=== PATIENT | male | born 1975 | race African-American/Black ===

== ENCOUNTER 2021-08-09 07:17 | Emergency (ER) | payer OTHER, SELFPAY ==
[2021-08-09 07:27] VITALS: BP 135/92; PULSE 67; RESP 18; TEMP 36.4; O2SAT 99; BMI 29.4
--- NOTE | 2021-08-09 07:33 | ED_ITS ---
HPI - Medical Clearance General Chief complaint: Medical Clearance Stated complaint: COVID TEST/EXPOSED/ACTIVE DUTY Time Seen by Provider: 08/09/21 07:29 Source: patient Mode of arrival: Ambulatory History of Present Illness HPI Narrative: Patient here for COVID testing only. He was exposed by his roommates. They tested positive last week. Patient denies denies any symptoms. No cough cold congestion fevers chills bodyaches dyspnea. 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 Patient is COVID vaccinated Related Information Allergies Allergy/AdvReac Type Severity Reaction Status Date / Time No Known Drug Allergies Allergy Verified 08/09/21 07:27 Review of Systems Review of Systems Narrative: GENERAL: Denies chills, fatigue, malaise, fever, sweats. HEENT: Denies sinus pain, ear pain, sore throat RESPIRATORY: Denies dyspnea, cough CARDIOVASCULAR: Denies chest pain, palpitations GASTROINTESTINAL: Denies nausea, vomiting, abdominal pain : Denies dysuria, frequency, hematuria MUSCULOSKELETAL: denies muscle or bony pain SKIN: Denies rash, skin lesions NEUROLOGIC: Denies weakness, numbness ROS Unobtainable: All systems reviewed & are unremarkable except as noted in HPI and below Patient History Social History Smoking Status: Never smoker Smoking Status: Never smoker alcohol intake frequency: holidays/special occasions only Substance Use Type: does not use Exam Narrative Exam Narrative: GENERAL: in no distress, not toxic not dyspneic HEAD: Normocephalic. EYES: Pupils equal round No scleral icterus. NECK: Trachea midline. CARDIOVASCULAR: Regular rate and rhythm without murmurs RESPIRATORY: Clear to auscultation. Breath sounds equal bilaterally. No wheezes, rales, or rhonchi. GASTROINTESTINAL: Abdomen soft, non-tender BACK: No flank tenderness. NEURO: AOx4. SKIN: Warm and dry PSYCH: Not anxious, is cooperative Initial Vital Signs Initial Vital Signs: Vital Signs Temperature 97.5 F L 08/09/21 07:27 Pulse Rate 67 08/09/21 07:27 Respiratory Rate 18 08/09/21 07:27 Blood Pressure 135/92 H 08/09/21 07:27 Pulse Oximetry 99 08/09/21 07:27 [facility] - Medical Clearance Differential Diagnosis Differential diagnosis: Likely other (Medical screening/COVID testing) Lab Data Labs: Lab Results 08/09/21 Range/Units 08:14 SARS-CoV-2 (PCR) Negative (Negative) MDM Narrative Medical decision making narrative: Appropriate for discharge home. Patient here for COVID testing for work requirement. Return precautions reviewed with him. Not toxic. Examined vital signs reassuring. Discharge Plan Departure Patient Disposition: Home Clinical Impression: COVID-19 ruled out by laboratory testing Instructions: COVID-19: Protecting Yourself When You're at High Risk, Can COVID-19 be prevented? Activity Restrictions/Additional Instructions: You have tested negative for COVID. You may return to work. Return if worsening questions or concerns. Stand Alone Forms: Work Release Note
[2021-08-09 08:34] LABS: COVID19 -Nasal RAPID Negative (Negative)
== END 2021-08-09 08:45 | disposition home or self-care (01) ==
PROVIDERS: Emergency Provider Emergency Medicine
DX: Z20.822 Contact with and (suspected) exposure to COVID-19 (principal)
CPT/HCPCS: 87635; 99281; 99282; C9803

== ENCOUNTER 2022-01-07 15:34 | Emergency (ER) | payer OTHER, SELFPAY ==
[2022-01-07 15:38] VITALS: BP 143/87; PULSE 68; RESP 20; TEMP 36.4; O2SAT 100; BMI 28.3
--- NOTE | 2022-01-07 15:46 | DI.RAD.S_ITS ---
PROCEDURE: XR ANKLE RT MIN 3V INDICATIONS: posterior pain/swelling TECHNIQUE: 3 views of the ankle were acquired. COMPARISON: None. FINDINGS: Bones: Distal to the medial malleolus, there is a remote appearing fracture fragment seen. No acute fractures are identified. The talar dome demonstrates no aurea abnormality. No suspicious lytic or blastic lesions are seen. Soft tissues: Mild soft tissue swelling is seen posteriorly. IMPRESSION: Soft tissue swelling is seen posteriorly, without an acute bony abnormality. If it would be helpful for clinical management decision making, please consider a dedicated, scheduled ankle MRI for further evaluation (assuming that there is no contraindication). Remote fracture fragment seen inferior to the medial malleolus. Dictated by: Stan Evangelista M.D. on 01/07/2022 at 15:01 Approved by: Stan Evangelista M.D. on 01/07/2022 at 15:02
--- NOTE | 2022-01-07 16:49 | ED_ITS ---
HPI - Extremity Injury (Lower) <Eric Jensen PA-C - Last Filed: 01/07/22 20:39> General Chief Complaint: Extremity Injury, Lower Stated Complaint: Thinks torn achilles Time Seen by Provider: 01/07/22 15:50 Source: patient Mode of arrival: Ambulatory History of Present Illness HPI Narrative: Patient is a 46-year-old male who presents to the emergency department for evaluation of a right lower extremity injury. Patient complains that he was playing basketball approximately 3 hours ago when he felt a pop in his right ankle followed by instability of the right lower extremity. Of note, patient denies falling or hitting his head as a result of the injury. Additionally, he denies pain or injury elsewhere. He denies fever, chills, chest pain, cough, shortness of breath, nausea, vomiting, diarrhea, constipation, abdominal pain, dysuria, hematuria, or any other concerning symptoms. No further concerns were voiced at this time. Related Data Allergies Allergy/AdvReac Type Severity Reaction Status Date / Time No Known Drug Allergies Allergy Verified 08/09/21 07:27 Review of Systems <Eric Jensen PA-C - Last Filed: 01/07/22 20:39> Constitutional Constitutional: Denies chills, Denies fatigue, Denies fever(s), Denies frequent falls, Denies lethargy and Denies weakness ENT Ears, Nose, Mouth, and Throat: Denies neck pain Cardiovascular Cardiovascular: Denies chest pain, Denies irregular heart rhythm, Denies lightheadedness, Denies palpitations, Denies dyspnea, Denies dyspnea on exertion and Denies orthopnea Respiratory Respiratory: Denies dyspnea and Denies dyspnea on exertion Gastrointestinal Gastrointestinal: Denies abdominal pain, Denies change in bowel habits, Denies diarrhea, Denies nausea and Denies vomiting Genitourinary Genitourinary: Denies hematuria, Denies flank pain, Denies urinary incontinence and Denies urinary urgency Musculoskeletal Musculoskeletal: Denies back pain, Reports arthralgias (Right ankle), Reports joint swelling (Right ankle), Denies muscle weakness, Denies neck pain, Denies numbness, Denies tingling and Reports other (Right lower extremity instability) Integumentary/Breasts Skin/Breast: Denies pruritus, Denies erythema, Denies rash and Denies wounds Neurologic Neurologic: Denies frequent falls, Denies numbness, Denies tingling and Denies weakness Endocrine Endocrine: Denies fatigue and Denies palpitations Patient History <Eric Jensen PA-C - Last Filed: 01/07/22 20:39> Social History Smoking Status: Never smoker Smoking Status: Never smoker alcohol intake frequency: holidays/special occasions only Substance Use Type: does not use Exam <Eric Jensen PA-C - Last Filed: 01/07/22 20:39> Narrative Exam Narrative: GENERAL: 46 year old patient appears stated age. Well-developed patient, in no acute distress. HEAD: Atraumatic. Normocephalic. EYES: Pupils equal round and reactive. Extraocular motions intact. No scleral icterus. No injection or drainage. ENT: Nose without bleeding, purulent drainage. Throat without erythema, tonsillar hypertrophy or exudate. Airway patent. NECK: Trachea midline. Non tender CARDIOVASCULAR: Regular rate and rhythm without murmurs, gallops, or rubs. RESPIRATORY: Clear to auscultation. Breath sounds equal bilaterally. No wheezes, rales, or rhonchi. GASTROINTESTINAL: Abdomen soft, non-tender, nondistended. EXTREMITIES: No edema. Mild swelling appreciated along the posterior aspect of the right ankle in the area of the distal Achilles tendon with tenderness to palpation. Positive Wren sign with tenderness to pressure to the right gastrocnemius. Patient has difficulty plantar flexing, dorsiflexion performed without significant difficulty or discomfort. Good sensation light touch appreciated throughout the bilateral lower extremities. BACK: Nontender without deformity or crepitance. No flank tenderness. NEURO: AOx3. SKIN: No rash or erythema of visible areas Initial Vital Signs Initial Vital Signs: Vital Signs Temperature 97.6 F 01/07/22 15:38 Pulse Rate 68 01/07/22 15:38 Respiratory Rate 20 01/07/22 15:38 Blood Pressure 143/87 H 01/07/22 15:38 Pulse Oximetry 100 01/07/22 15:38 Oxygen Delivery Method 01/07/22 15:38 <Michelle Chavis DO - Last Filed: 01/08/22 19:52> Initial Vital Signs Initial Vital Signs: Vital Signs Temperature 97.6 F 01/07/22 15:38 Pulse Rate 68 01/07/22 15:38 Respiratory Rate 20 01/07/22 15:38 Blood Pressure 143/87 H 01/07/22 15:38 Pulse Oximetry 100 01/07/22 15:38 Oxygen Delivery Method 01/07/22 15:38 Course <Eric Jensen PA-C - Last Filed: 01/07/22 20:39> Course Course Narrative: X-ray of the right ankle obtained. Soft tissue swelling noted posteriorly with remote appearing fracture fragment at the medial malleolus. There is no significant tenderness to palpation appreciated in the medial malleolus. Orders Ordered: ED Orders 01/07/22 15:46 XR ankle RT min 3V Stat Consultations Consultation #1: Consult with Dr. Schwartz (orthopedic surgery). Recommends placing the patient in short-leg splint in plantar flexion and follow-up with clinic. Time: 16:47 Vital Signs Vital signs: Vital Signs - 8 hr 01/07/22 15:38 Temperature 97.6 F Pulse Rate 68 Respiratory Rate 20 Blood Pressure 143/87 H Pulse Oximetry 100 Oxygen Delivery Method Room Air <Michelle Chavis DO - Last Filed: 01/08/22 19:52> Orders Ordered: ED Orders 01/07/22 15:46 XR ankle RT min 3V Stat Vital Signs Vital signs: Vital Signs - 8 hr 01/07/22 15:38 Temperature 97.6 F Pulse Rate 68 Respiratory Rate 20 Blood Pressure 143/87 H Pulse Oximetry 100 Oxygen Delivery Method Room Air MDM - Extremity Injury (Lower) <Eric Jensen PA-C - Last Filed: 01/07/22 20:39> Imaging Data Extremity x-ray #1: Radiologist's Impression: PROCEDURE:? XR ANKLE RT MIN 3V ? INDICATIONS:? posterior pain/swelling ? TECHNIQUE:? 3 views of the ankle were acquired.? ? COMPARISON:? None. ? FINDINGS:? ? Bones:? Distal to the medial malleolus, there is a remote appearing fracture fragment seen.? No acute fractures are identified. The talar dome demonstrates no aurea abnormality.? No suspicious lytic or blastic lesions are seen. ? Soft tissues:? Mild soft tissue swelling is seen posteriorly. ? ? IMPRESSION:? Soft tissue swelling is seen posteriorly, without an acute bony abnormality. ? If it would be helpful for clinical management decision making, please consider a dedicated, scheduled ankle MRI for further evaluation (assuming that there is no contraindication).? ? Remote fracture fragment seen inferior to the medial malleolus. ? Dictated by: Stan Evangelista M.D. on 01/07/2022 at 15:01 ? ? Approved by: Stan Evangelista M.D. on 01/07/2022 at 15:02 MDM Narrative Medical decision making narrative: Differential diagnosis to consider but not limited to fracture versus disloca tion versus sprain versus strain versus Achilles tendon rupture versus Achilles tendinopathy. Physical exam findings consistent with Achilles tendon rupture. Discussed plan with patient to place him in a short leg splint in plantar flexion. Patient expresses understanding and agrees to plan. I urged the patient to follow-up with Orthopedics. Strict return precautions were discussed with patient prior to discharge. Abnormality noted at the medial malleolus is likely an old fracture as there is no significant discomfort to palpation or swelling in that area. Discharge Plan Departure Patient Disposition: Home Clinical Impression: Achilles tendon injury Instructions: DI for Achilles Tendon Rupture Activity Restrictions/Additional Instructions: *You have been diagnosed with Achilles tendon injury *What to do: *Please continue to take your regular medications as directed. [ ] New medication prescriptions sent to your pharmacy: [ ] [ ] New medication written as a paper prescription [X] No new medications given You were evaluated in the emergency department today for possible Achilles tendon rupture. Physical exam findings are consistent with Achilles tendon rupture. Your placed in a short-leg splint in plantar flexion in the emergency department today. I have set up a referral for orthopedic follow-up, they will be reaching out to schedule an appointment. Please ensure that you do not bear any weight on the right lower extremity until you are evaluated by specialist. Please follow-up with primary care within the next few days for further evaluation management. Do not hesitate to return to the emergency department if you experience worsening pain, loss of sensation in the right lower extremity, worsening swelling, fever, or any other concerning symptoms. *Please follow up with your primary care provider in 2-3 days, call for an appointment. Let them know you were seen in the Emergency Department and that we ask that you be seen in follow up. We will electronically transmit a record of today's note if your PCP is in our system *If you do not have a primary care provider please contact the [facility] Resource line at [phone]. They will ask some questions about your medical history and help get you set up with a doctor in the community. *Return to Emergency Department if you should have any new, worsening or concerning symptoms, such as fever greater than 101 F, shaking chills, worsening pain, persistent vomiting or other bothersome symptoms. Referrals: Miscellaneous,[facility] [Primary Care Provider] - Tad Schwartz MD [Physician] - 5-7 days Visit Report Forms: Patient Portal/API <Michelle Chavis DO - Last Filed: 01/08/22 19:52> Cosign ED Attending Alisature Attestation: I was immediately available in the department for consultation. Documentation has been reviewed.
== END 2022-01-07 17:23 | disposition home or self-care (01) ==
PROVIDERS: Emergency Provider Physician Assistant
DX: S86.091A Other specified injury of right Achilles tendon, initial encounter (principal); Y93.67 Activity, basketball
CPT/HCPCS: 29515; 73610; 99282; 99283

== ENCOUNTER → 2022-01-15 08:01 | Outpatient (CLI) | payer OTHER, SELFPAY ==
--- NOTE | 2022-01-15 | DI.MRI.S_ITS ---
PROCEDURE: MR ANKLE RT WO CON INDICATIONS: Unspecified injury of right ankle TECHNIQUE: Noncontrast sagittal T1 spin echo and T2 fast spin echo with fat saturation, axial proton density fast spin echo and T2 fast spin echo with fat saturation, coronal T1 spin echo and T2 fast spin echo with fat saturation through the ankle/hindfoot. COMPARISON: None. FINDINGS: Image quality: Excellent. Bones and joints: No bone marrow contusions or fractures. No hindfoot coalitions. No osteochondral injuries of the talar dome. No pathologic joint effusions. Medial structures: The posterior tibialis, flexor digitorum longus, and flexor hallucis longus tendons are intact. The posterior tibial neurovascular bundle appears normal within the tarsal tunnel, without extrinsic mass effect. The deep layer (anterior and posterior tibiotalar ligaments) and superficial layer (tibionavicular, tibiospring, and tibiocalcaneal ligaments) of the deltoid ligament appear normal. The spring ligament components (superomedial calcaneonavicular, medioplantar oblique calcaneonavicular, and inferoplantar longitudinal ligaments) are intact. Lateral structures: The anterior talofibular, calcaneofibular, and posterior talofibular ligaments appear intact. More superiorly, the anterior and posterior tibiofibular ligaments appear intact, as is the intermalleolar ligament. The tibiofibular syndesmosis is normal in width at 2 mm or less. The peroneus longus and brevis tendons demonstrate normal location and morphology. Adjacent bony peroneal tubercle and retrotrochlear prominence are normal in size. The sinus tarsi demonstrates normal fatty signal, without edema, fibrosis, or cyst formation. Visualized sinus tarsi components (cervical ligament, interosseous talocalcaneal ligament, roots of the inferior extensor retinaculum) appear normal. The calcaneonavicular and calcaneocuboid components of the bifurcate ligament appear intact. The dorsal calcaneocuboid ligament appears intact. Anterior structures: The tibialis anterior, extensor hallucis longus, and extensor digitorum longus tendons appear intact. The dorsal talonavicular ligament appears intact. Posterior and plantar structures: Markedly thickened Achilles tendon is seen with focal full-thickness rupture involving Achilles tendon approximately 6.6 cm from its insertion on posterior calcaneus. There is minimal 3-4 mm proximal retraction of torn tendon fibers with moderate amount of fluid and soft tissue edema surrounding torn tendon fibers. Soft tissue swelling and edema along posterior and medial aspect of ankle is seen. Medial and lateral bands of the plantar fascia are of normal thickness. No abductor digiti quinti muscle atrophy to suggest Brown neuropathy. IMPRESSION: 1. High-grade partial to full-thickness rupture involving Achilles tendon approximately 6.6 cm from its insertion on posterior calcaneus with up to 4 mm proximal retraction of torn tendon fibers with surrounding edema and fluid. 2. Extensor, flexor, and peroneus tendons are intact. Medial and lateral ankle ligaments are intact. 3. No marrow edema. No fracture or dislocation. Soft tissue swelling and edema over posterior and medial aspect of ankle joint. No significant joint effusion. Dictated by: Jonas Ryder M.D. on 01/15/2022 at 9:27 Approved by: Jonas Ryder M.D. on 01/15/2022 at 9:31
== END ==
DX: S86.011A Strain of right Achilles tendon, initial encounter (principal); M79.89 Other specified soft tissue disorders; X58.XXXA Exposure to other specified factors, initial encounter
CPT/HCPCS: 73721

== ENCOUNTER 2022-03-29 09:00 | Outpatient (RCR) | payer OTHER, SELFPAY ==
--- NOTE | 2022-02-20 17:37 | PT.OIE ---
Current Diagnoses Pain in right shoulder (02/20/22) Visit Care Team Role Provider Type RAJ Quintanilla MD Attending Provider Non-Staff Family Provider Referring Provider Specialty: Medical Address: [facility], [address] [place] [address], [id number] Email: Physical Therapy Initial Evaluation PT-OP-A Visit Information Start: 02/19/22 16:50 Freq: Status: Active Protocol: Document 02/20/22 08:12 [facility] (Rec: 02/20/22 09:03 [facility]AK [id number]) Out-Patient Physical Therapy Visit Information Visit Information Visit Type Initial Evaluation Visit Note patient 10 min late for eval Preferred name Sarkis Visit Start Time 08:25 Visit Stop Time 09:00 Total Visit Minutes 35 Visit Number 1 Evaluation Information Evaluation Date 02/20/22 PT-OP-B Current Condition Start: 02/19/22 16:50 Freq: Status: Active Protocol: Document 02/20/22 08:12 [facility]AK (Rec: 02/20/22 09:03 SAK [id number]) Current Condition History of Current Condition Onset Date 1 year Current Complaints bilateral shoulder pain History of Current Condition Ongoing bilateral shoulder pain and limited ROM since football in college, right greater than left, 1 year ago worsening, uncertain reason 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 Has been rehabing his shoulders on his own; using bands and pool. I's and Y's most difficulty; has been doing kneeling and standing, has not done on foam roller or ball. Has not used kinesiotape, noone to help put it on. Reports work station results in full extension UE's , agrees he probably need to change that. Pain is primarily anterior bilateral shoulders. Prior Treatments and Tests saw doctor in September 2021, no imaging yet, recommended PT first Future Testing and Treatments Planned 1x/wk 12 visits, PT recommend. Treatment Goals Patient/Caregiver Goals Decrease pain with all usual activities, be able to resume typical weight-lifting routine without pain. Prior Functional Status Baseline Function- ADL's Independent Baseline Function- Mobility Independent Baseline Function- Work/School no pain Baseline Function- Recreation/Hobbies no pain Current Functional Impairments (Reported) Functional Limitations- ADL's painful Functional Limitations- Work/School painful Functional Limitations- Recreation/ painful Hobbies PT-OP-C Subjective Start: 02/19/22 16:50 Freq: Status: Active Protocol: Document 02/20/22 08:12 [facility] (Rec: 02/20/22 09:03 [facility] [id number]) Patient Questionnaires Quick Dash- Upper Extremity Quick Dash UE Score 27 OP-PT Pain Assessment Pain Assessment Grid Paper Pain Assessment Grid Completed Yes Location radha shoulders Intensity 3 Description Aching,Burning,Pressure,Tender ,Tightness Frequency Frequent Pain Aggravating Factors ADL's,Activity,Exercise Pain Alleviating Factors Cold,Heat,Medication, Inactivity,Rest Home Pain Medication Use Pain Medications Used No Comments Pain Comments ice, heat, intermittant PT-OP-K Range of Motion Start: 02/19/22 16:50 Freq: Status: Active Protocol: Document 02/20/22 08:12 [facility] (Rec: 02/20/22 09:03 [facility] [id number]) Cervical Spine Range of Motion Cervical Spine Active Comments WNL Shoulder Goniometric Range of Motion Shoulder right Testing Position Sitting Flexion 165 Extension 20 Abduction 160 External Rotation at 45 degrees 65 Abduction Internal Rotation Behind Back (text) T8 Comments limited by pain left Testing Position Sitting Flexion 170 Extension 20 Abduction 165 External Rotation at 45 degrees 60 Abduction Internal Rotation Behind Back (text) T8 Comments limited by pain Shoulder ROM Limitations Shoulder ROM Limitations Soft Tissue Tightness,Muscle Weakness,Pain PT-OP-T Assessment and Plan Start: 02/19/22 16:50 Freq: Status: Active Protocol: Document 02/20/22 08:12 [facility] (Rec: 02/20/22 09:03 [facility] [id number]) Physical Therapy Assessment Rehab Potential Rehabilitation Potential Good Evaluation Complexity Number of Personal Factors/Comorbidities 1-2 Number of Body Systems Impaired 3 Clinical Presentation at Evaluation Evolving Impairments Impairments Activity Tolerance,Pain,ROM, Strength Goals lacking HEP Impairment HEP not including posterior chain strengthening, flexibility Impairment weakness rhomboids, lower trapezius, shoulder ER, tight anterior chest Short Term Goal (STG) Instruct patient in balanced, progressive ther ex program for bilateral shoulder ROM and strengthening STG Duration 03/21/22 Knitter Helper Goal (LTG) Patient to demonstrate 5/5 muscle strength throughout his shoulders to allow him to return to all prior activities without pain LTG Duration 05/22/22 ROM and strength impairment Impairment dec end-range flex ROM radha right greater than left with ant pinching pain Impairment tight posterior shoulder capsule Short Term Goal (STG) Improve mobility of posterior shoulder capsule to WNL radha shoulders STG Duration 03/29/22 Fdc Goal (LTG) Patient to demonstrate full active shoulder flexion without pain LTG Duration 05/22/22 decreased activity tolerance Impairment unable to do recreational activity Short Term Goal (STG) Patient will be able to resume light recreational activity without an increase in bilateral shoulder pain STG Duration 03/22/22 Knitter Helper Goal (LTG) Patient will be able to resume all prior activities without shoulder pain LTG Duration 05/22/22 pain Impairment pain 3/10 radha shoulders right greater than left Short Term Goal (STG) Decrease pain frequency by 50% STG Duration 03/22/22 Knitter Helper Goal (LTG) Decrease pain to 0-1/10 with all usual acataivities. Assessment Summary Assessment Patient presents to PT with function-limiting pain bilateral shoulders. Patient presents with rounded shoulder posture, weakness posterior chain musculature bilateral shoulders in ER, extension, flexion, abduction. Anterior shoulder pain with elevation with capsular tightness. Tight posterior glide radha right greater than left, left tighter into inferior glide. Recommendations from PT for I' s, Y's, T's supine over therapy ball, thoracic extension work, sidelying external rotation, rear deltoid work. PT will work on manual techniques for GH mobilization. Physical Therapy Plan Frequency and Duration Frequency of Treatment 1x/Week Duration of Treatment 12 weeks Plan of Care Start Date 02/20/22 Plan of Care End Date 05/22/22 Therapeutic Interventions Therapeutic Interventions Home Exercise Program,Manual Therapy,Neuromuscular Re- education,Patient/Caregiver Education,Self-Care/Home Management,Soft Tissue Mobilization,Taping, Therapeutic Activities, Therapeutic Exercises Modalities Cold Pack/Ice Massage,Electric Stimulation,Hot Packs, Infrared Therapy,Iontophoresis ,Ultrasound Next Visit Focus/Plan Next Note Type Treatment Note Next Visit Plan Review HEP, progress as tolerated.
--- NOTE | 2022-02-20 17:38 | PT.OPPOC ---
Physical, Occupational & Speech Therapy At [facility] Current Diagnoses Pain in right shoulder (02/20/22) Visit Care Team Role Provider Type RAJ Quintanilla MD Attending Provider Non-Staff Family Provider Referring Provider Specialty: Medical Address: [facility], [facility] [place], [address] Email: Plan Of Care PT-OP-T Assessment and Plan Start: 02/19/22 16:50 Freq: Status: Active Protocol: Document 02/20/22 08:12 [facility] (Rec: 02/20/22 09:03 [facility] [id number]) Physical Therapy Assessment Rehab Potential Rehabilitation Potential Good Evaluation Complexity Number of Personal Factors/Comorbidities 1-2 Number of Body Systems Impaired 3 Clinical Presentation at Evaluation Evolving Impairments Impairments Activity Tolerance,Pain,ROM, Strength Goals lacking HEP Impairment HEP not including posterior chain strengthening, flexibility Impairment weakness rhomboids, lower trapezius, shoulder ER, tight anterior chest Short Term Goal (STG) Instruct patient in balanced, progressive ther ex program for bilateral shoulder ROM and strengthening STG Duration 03/21/22 Pca Goal (LTG) Patient to demonstrate 5/5 muscle strength throughout his shoulders to allow him to return to all prior activities without pain LTG Duration 05/22/22 ROM and strength impairment Impairment dec end-range flex ROM radha right greater than left with ant pinching pain Impairment tight posterior shoulder capsule Short Term Goal (STG) Improve mobility of posterior shoulder capsule to WNL radha shoulders STG Duration 03/29/22 Pca Goal (LTG) Patient to demonstrate full active shoulder flexion without pain LTG Duration 05/22/22 decreased activity tolerance Impairment unable to do recreational activity Short Term Goal (STG) Patient will be able to resume light recreational activity without an increase in bilateral shoulder pain STG Duration 03/22/22 Pca Goal (LTG) Patient will be able to resume all prior activities without shoulder pain LTG Duration 05/22/22 pain Impairment pain 3/10 radha shoulders right greater than left Short Term Goal (STG) Decrease pain frequency by 50% STG Duration 03/22/22 Care Home Goal (LTG) Decrease pain to 0-1/10 with all usual acataivities. Assessment Summary Assessment Patient presents to PT with function-limiting pain bilateral shoulders. Patient presents with rounded shoulder posture, weakness posterior chain musculature bilateral shoulders in ER, extension, flexion, abduction. Anterior shoulder pain with elevation with capsular tightness. Tight posterior glide radha right greater than left, left tighter into inferior glide. Recommendations from PT for I' s, Y's, T's supine over therapy ball, thoracic extension work, sidelying external rotation, rear deltoid work. PT will work on manual techniques for GH mobilization. Physical Therapy Plan Frequency and Duration Frequency of Treatment 1x/Week Duration of Treatment 12 weeks Plan of Care Start Date 02/20/22 Plan of Care End Date 05/22/22 Therapeutic Interventions Therapeutic Interventions Home Exercise Program,Manual Therapy,Neuromuscular Re- education,Patient/Caregiver Education,Self-Care/Home Management,Soft Tissue Mobilization,Taping, Therapeutic Activities, Therapeutic Exercises Modalities Cold Pack/Ice Massage,Electric Stimulation,Hot Packs, Infrared Therapy,Iontophoresis ,Ultrasound Next Visit Focus/Plan Next Note Type Treatment Note Next Visit Plan Review HEP, progress as tolerated. Plan of Care Dates Plan of Care Start Date 02/20/22 Plan of Care End Date 05/22/22 Electronically Signed by: Lexy Gomez, PT 02/21/22 [id number] If you are in agreement with this Plan of Care, please return a signed and dated copy. I have reviewed this Plan of Care and certify that the skilled therapy services above are required to meet the patient?s needs. Physician Signature Date Printed Name and Credentials Clinical Instructor Signature Printed Name and Credentials
--- NOTE | 2022-02-27 09:15 | PT.OTN ---
Current Diagnoses Pain in right shoulder (02/27/22) Physical Therapy Treatment Note PT-OP-A Visit Information Start: 02/19/22 16:50 Freq: Status: Active Protocol: Document 02/27/22 08:06 [facility] (Rec: 02/27/22 09:14 [facility] [id number]) Out-Patient Physical Therapy Visit Information Visit Information Visit Type Treatment Note Visit Start Time 08:15 Visit Stop Time 09:00 Total Visit Minutes 45 Visit Number 2 Evaluation Information Evaluation Date 02/20/22 PT-OP-B Current Condition Start: 02/19/22 16:50 Freq: Status: Active Protocol: Document 02/27/22 08:06 [facility] (Rec: 02/27/22 09:14 [facility] [id number]) Current Condition History of Current Condition Onset Date 1 year Current Complaints bilateral shoulder pain History of Current Condition Ongoing bilateral shoulder pain and limited ROM since football in college, right greater than left, 1 year ago worsening, uncertain reason 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 Has been rehabing his shoulders on his own; using bands and pool. I's and Y's most difficulty; has been doing kneeling and standing, has not done on foam roller or ball. Has not used kinesiotape, noone to help put it on. Reports work station results in full extension UE's , agrees he probably need to change that. Pain is primarily anterior bilateral shoulders. Prior Treatments and Tests saw doctor in September 2021, no imaging yet, recommended PT first Future Testing and Treatments Planned 1x/wk 12 visits, PT recommend. Treatment Goals Patient/Caregiver Goals Decrease pain with all usual activities, be able to resume typical weight-lifting routine without pain. PT-OP-C Subjective Start: 02/19/22 16:50 Freq: Status: Active Protocol: Document 02/20/22 08:12 [facility] (Rec: 02/20/22 09:03 [facility] [id number]) Patient Questionnaires Quick Dash- Upper Extremity Quick Dash UE Score 27 OP-PT Pain Assessment Pain Assessment Grid Paper Pain Assessment Grid Completed Yes Location radha shoulders Intensity 3 Description Aching,Burning,Pressure,Tender ,Tightness Frequency Frequent Pain Aggravating Factors ADL's,Activity,Exercise Pain Alleviating Factors Cold,Heat,Medication, Inactivity,Rest Home Pain Medication Use Pain Medications Used No Comments Pain Comments ice, heat, intermittant PT-OP-J Posture/Palpation/Skin Start: 02/19/22 16:50 Freq: Status: Active Protocol: Document 02/20/22 08:12 [facility] (Rec: 02/21/22 17:43 [facility] [id number]) Palpation Assessment Location radha shoulder Palpation Location anterior labrum, long head biceps Palpation Findings Tenderness PT-OP-K Range of Motion Start: 02/19/22 16:50 Freq: Status: Active Protocol: Document 02/20/22 08:12 [facility] (Rec: 02/20/22 09:03 [facility] [id number]) Cervical Spine Range of Motion Cervical Spine Active Comments WNL Shoulder Goniometric Range of Motion Shoulder right Testing Position Sitting Flexion 165 Extension 20 Abduction 160 External Rotation at 45 degrees 65 Abduction Internal Rotation Behind Back (text) T8 Comments limited by pain left Testing Position Sitting Flexion 170 Extension 20 Abduction 165 External Rotation at 45 degrees 60 Abduction Internal Rotation Behind Back (text) T8 Comments limited by pain Shoulder ROM Limitations Shoulder ROM Limitations Soft Tissue Tightness,Muscle Weakness,Pain PT-OP-L Special Tests Start: 02/19/22 16:50 Freq: Status: Active Protocol: Document 02/20/22 08:12 [facility] (Rec: 02/21/22 17:43 [facility] [id number]) Special Tests Shoulder Special Tests Speed's Biceps Test Results positive radha Elevation Impingement Test Results negative radha Belly Press Test Results negative radha Drop Arm Rotator Cuff Test Results negative radha PT-OP-M Strength Start: 02/19/22 16:50 Freq: Status: Active Protocol: Document 02/20/22 08:12 [facility] (Rec: 02/21/22 17:43 [facility] [id number]) Shoulder Strength Shoulder Manual Muscle Testing Left Flexion 4 Good Extension 4 Good Abduction (C5) 4 Good External Rotation 4- Good- Internal Rotation 4 Good Horizontal Abduction 4 Good Horizontal Adduction 4 Good Right Flexion 4+ Good+ Extension 4- Good- Abduction (C5) 4 Good External Rotation 4- Good- Internal Rotation 4 Good Horizontal Abduction 4- Good- Horizontal Adduction 4- Good- Elbow/Forearm Strength Elbow and Forearm Manual Muscle Testing radha Flexion (C6) 5 Normal Extension (C7) 5 Normal PT-OP-Q Treatments Start: 02/19/22 16:50 Freq: Status: Active Protocol: Document 02/27/22 08:06 [facility] (Rec: 02/27/22 09:14 [facility] [id number]) Cardio Equipment Upper Body Ergometer (UBE) RPM 60 Seat Position 11 Height 2.5 Other fwd,bck alternating 1 min intervals Gym Equipment Therapeutic Ball supine I, T,Y Exercise Details active, then end-range stretch Ball Size/Color 75 cm Body Position Supine Therapeutic Exercises Supine Exercises ER Side right Reps/Minutes 30 x 2 Comments manual stretch after joint mob Y's, T's Resistance L3 TB Reps/Minutes 10x2 Comments also issued L4 Sidelying Exercises open book Reps/Minutes 5x radha Comments cues for segmental movement, deep breathing at end range Standing Exercises doorway stretch Reps/Minutes 3x30 Comments varying angles Manual Therapy Treatment Joint Mobilizations thoracic PA's Joint T4-T10 Direction PA Grade III Body Position Prone Reps/Duration approx 10 each level Comments use of wedge, good feedback response GH Joint right Direction posterior, inf Grade III Body Position Supine Reps/Duration 8 min Self-Care/Home Management Treatment Education Patient Education Home Exercise Program,Posture Other Education reviewed importance of modification of work station for improved alignment and mechanics, decreased stress to shld PT-OP-T Assessment and Plan Start: 02/19/22 16:50 Freq: Status: Active Protocol: Document 02/27/22 08:06 [facility] (Rec: 02/27/22 09:14 [facility] [id number]) Physical Therapy Assessment Goals lacking HEP Impairment HEP not including posterior chain strengthening, flexibility Impairment weakness rhomboids, lower trapezius, shoulder ER, tight anterior chest Short Term Goal (STG) Instruct patient in balanced, progressive ther ex program for bilateral shoulder ROM and strengthening STG Duration 03/21/22 Jail Goal (LTG) Patient to demonstrate 5/5 muscle strength throughout his shoulders to allow him to return to all prior activities without pain LTG Duration 05/22/22 ROM and strength impairment Impairment dec end-range flex ROM radha right greater than left with ant pinching pain Impairment tight posterior shoulder capsule Short Term Goal (STG) Improve mobility of posterior shoulder capsule to WNL radha shoulders STG Duration 03/29/22 Cereal Supervisor Goal (LTG) Patient to demonstrate full active shoulder flexion without pain LTG Duration 05/22/22 decreased activity tolerance Impairment unable to do recreational activity Short Term Goal (STG) Patient will be able to resume light recreational activity without an increase in bilateral shoulder pain STG Duration 03/22/22 Cereal Supervisor Goal (LTG) Patient will be able to resume all prior activities without shoulder pain LTG Duration 05/22/22 pain Impairment pain 3/10 radha shoulders right greater than left Short Term Goal (STG) Decrease pain frequency by 50% STG Duration 03/22/22 Jail Goal (LTG) Decrease pain to 0-1/10 with all usual acataivities. Assessment Summary Assessment Patient verbalized minimal pain today and reports improved compliance to posterior chain strengthening, anterior stretching as discussed at eval. Started with UBE today fwd and back, stretching supine over therapy ball, and T's and Y's supine on foam roller for strengthening without UT overactivation. Good tolerance to joint mobilizations of thoracic spine and GH. Patient has good body awareness and responds well to cues for improved performance. Physical Therapy Plan Frequency and Duration Frequency of Treatment 1x/Week Duration of Treatment 12 weeks Plan of Care Start Date 02/20/22 Plan of Care End Date 05/22/22 Therapeutic Interventions Therapeutic Interventions Home Exercise Program,Manual Therapy,Neuromuscular Re- education,Patient/Caregiver Education,Self-Care/Home Management,Soft Tissue Mobilization,Taping, Therapeutic Activities, Therapeutic Exercises Modalities Cold Pack/Ice Massage,Electric Stimulation,Hot Packs, Infrared Therapy,Iontophoresis ,Ultrasound Next Visit Focus/Plan Next Note Type Treatment Note Next Visit Plan Review shoulder ER strengthening and assure correct performance. Empasis on thoracic and GH joint mobs, left GH as well as right. Problem solve any difficulties with HEP.
--- NOTE | 2022-03-02 12:15 | PT-OP ANOTE ---
Pt called <24 hr notice to cancel PT appt due to unable to get out of work.
--- NOTE | 2022-03-06 09:03 | PT.OTN ---
Current Diagnoses Pain in right shoulder (03/06/22) Physical Therapy Treatment Note PT-OP-A Visit Information Start: 02/19/22 16:50 Freq: Status: Active Protocol: Document 03/06/22 08:14 [facility] (Rec: 03/06/22 09:03 [facility] [id number]) Out-Patient Physical Therapy Visit Information Visit Information Visit Type Treatment Note Visit Start Time 08:15 Visit Stop Time 09:00 Total Visit Minutes 45 Visit Number 3 Evaluation Information Evaluation Date 02/20/22 PT-OP-B Current Condition Start: 02/19/22 16:50 Freq: Status: Active Protocol: Document 03/06/22 08:14 [facility] (Rec: 03/06/22 09:03 [facility] [id number]) Current Condition History of Current Condition Onset Date 1 year Current Complaints bilateral shoulder pain History of Current Condition Ongoing bilateral shoulder pain and limited ROM since football in college, right greater than left, 1 year ago worsening, uncertain reason 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 Has been rehabing his shoulders on his own; using bands and pool. I's and Y's most difficulty; has been doing kneeling and standing, has not done on foam roller or ball. Has not used kinesiotape, noone to help put it on. Reports work station results in full extension UE's , agrees he probably need to change that. Pain is primarily anterior bilateral shoulders. Prior Treatments and Tests saw doctor in September 2021, no imaging yet, recommended PT first Future Testing and Treatments Planned 1x/wk 12 visits, PT recommend. Treatment Goals Patient/Caregiver Goals Decrease pain with all usual activities, be able to resume typical weight-lifting routine without pain. PT-OP-C Subjective Start: 02/19/22 16:50 Freq: Status: Active Protocol: Document 02/20/22 08:12 [facility] (Rec: 02/20/22 09:03 [facility] [id number]) Patient Questionnaires Quick Dash- Upper Extremity Quick Dash UE Score 27 OP-PT Pain Assessment Pain Assessment Grid Paper Pain Assessment Grid Completed Yes Location radha shoulders Intensity 3 Description Aching,Burning,Pressure,Tender ,Tightness Frequency Frequent Pain Aggravating Factors ADL's,Activity,Exercise Pain Alleviating Factors Cold,Heat,Medication, Inactivity,Rest Home Pain Medication Use Pain Medications Used No Comments Pain Comments ice, heat, intermittant PT-OP-J Posture/Palpation/Skin Start: 02/19/22 16:50 Freq: Status: Active Protocol: Document 02/20/22 08:12 [facility] (Rec: 02/21/22 17:43 [facility] [id number]) Palpation Assessment Location radha shoulder Palpation Location anterior labrum, long head biceps Palpation Findings Tenderness PT-OP-K Range of Motion Start: 02/19/22 16:50 Freq: Status: Active Protocol: Document 02/20/22 08:12 [facility] (Rec: 02/20/22 09:03 [facility] [id number]) Cervical Spine Range of Motion Cervical Spine Active Comments WNL Shoulder Goniometric Range of Motion Shoulder right Testing Position Sitting Flexion 165 Extension 20 Abduction 160 External Rotation at 45 degrees 65 Abduction Internal Rotation Behind Back (text) T8 Comments limited by pain left Testing Position Sitting Flexion 170 Extension 20 Abduction 165 External Rotation at 45 degrees 60 Abduction Internal Rotation Behind Back (text) T8 Comments limited by pain Shoulder ROM Limitations Shoulder ROM Limitations Soft Tissue Tightness,Muscle Weakness,Pain PT-OP-L Special Tests Start: 02/19/22 16:50 Freq: Status: Active Protocol: Document 02/20/22 08:12 [facility] (Rec: 02/21/22 17:43 [facility] [id number]) Special Tests Shoulder Special Tests Speed's Biceps Test Results positive radha Elevation Impingement Test Results negative radha Belly Press Test Results negative radha Drop Arm Rotator Cuff Test Results negative radha PT-OP-M Strength Start: 02/19/22 16:50 Freq: Status: Active Protocol: Document 02/20/22 08:12 [facility] (Rec: 02/21/22 17:43 [facility] [id number]) Shoulder Strength Shoulder Manual Muscle Testing Left Flexion 4 Good Extension 4 Good Abduction (C5) 4 Good External Rotation 4- Good- Internal Rotation 4 Good Horizontal Abduction 4 Good Horizontal Adduction 4 Good Right Flexion 4+ Good+ Extension 4- Good- Abduction (C5) 4 Good External Rotation 4- Good- Internal Rotation 4 Good Horizontal Abduction 4- Good- Horizontal Adduction 4- Good- Elbow/Forearm Strength Elbow and Forearm Manual Muscle Testing radha Flexion (C6) 5 Normal Extension (C7) 5 Normal PT-OP-Q Treatments Start: 02/19/22 16:50 Freq: Status: Active Protocol: Document 03/06/22 08:14 [facility] (Rec: 03/06/22 09:03 [facility] [id number]) Cardio Equipment Upper Body Ergometer (UBE) RPM 60 Seat Position 11 Height 2.5 Other fwd,bck alternating 1 min intervals Therapeutic Exercises Prone Exercises T's, Y's Reps/Minutes 10x Comments cues for scapular mechanics and movement. Sidelying Exercises pec stretch Comments contract/relax Standing Exercises posture press, ER Reps/Minutes 3 min Comments cues for posterior pelvic tilt for neutral spinal alignment. Manual Therapy Treatment Joint Mobilizations scapulothoracic Reps/Duration 5 min Comments contract relax, infl glide thoracic PA's Joint T4-T10 Direction PA Grade III Body Position Prone Reps/Duration approx 10 each level Comments use of wedge, good feedback response GH Joint right Direction posterior, inf Grade III Body Position Supine Reps/Duration 8 min PT-OP-T Assessment and Plan Start: 02/19/22 16:50 Freq: Status: Active Protocol: Document 03/06/22 08:14 [facility] (Rec: 03/06/22 09:03 [facility] [id number]) Physical Therapy Assessment Goals lacking HEP Impairment HEP not including posterior chain strengthening, flexibility Impairment weakness rhomboids, lower trapezius, shoulder ER, tight anterior chest Short Term Goal (STG) Instruct patient in balanced, progressive ther ex program for bilateral shoulder ROM and strengthening STG Duration 03/21/22 Penitentiary Goal (LTG) Patient to demonstrate 5/5 muscle strength throughout his shoulders to allow him to return to all prior activities without pain LTG Duration 05/22/22 ROM and strength impairment Impairment dec end-range flex ROM radha right greater than left with ant pinching pain Impairment tight posterior shoulder capsule Short Term Goal (STG) Improve mobility of posterior shoulder capsule to WNL radha shoulders STG Duration 03/29/22 Penitentiary Goal (LTG) Patient to demonstrate full active shoulder flexion without pain LTG Duration 05/22/22 decreased activity tolerance Impairment unable to do recreational activity Short Term Goal (STG) Patient will be able to resume light recreational activity without an increase in bilateral shoulder pain STG Duration 03/22/22 Penitentiary Goal (LTG) Patient will be able to resume all prior activities without shoulder pain LTG Duration 05/22/22 pain Impairment pain 3/10 radha shoulders right greater than left Short Term Goal (STG) Decrease pain frequency by 50% STG Duration 03/22/22 Slot Floor Person Goal (LTG) Decrease pain to 0-1/10 with all usual acataivities. Assessment Summary Assessment Patient reporting improvement in pain but still feeling impingement and pain in diagnonal elevation. Physical Therapy Plan Frequency and Duration Frequency of Treatment 1x/Week Duration of Treatment 12 weeks Plan of Care Start Date 02/20/22 Plan of Care End Date 05/22/22 Therapeutic Interventions Therapeutic Interventions Home Exercise Program,Manual Therapy,Neuromuscular Re- education,Patient/Caregiver Education,Self-Care/Home Management,Soft Tissue Mobilization,Taping, Therapeutic Activities, Therapeutic Exercises Modalities Cold Pack/Ice Massage,Electric Stimulation,Hot Packs, Infrared Therapy,Iontophoresis ,Ultrasound Next Visit Focus/Plan Next Note Type Treatment Note Next Visit Plan Continue joint mobiliztion, posterior chain strengthening, postural re-education
--- NOTE | 2022-03-09 14:35 | PT.OTN ---
Current Diagnoses Pain in right shoulder (03/13/22) Physical Therapy Treatment Note PT-OP-A Visit Information Start: 02/19/22 16:50 Freq: Status: Active Protocol: Document 03/16/22 14:45 NBM (Rec: 03/16/22 17:20 NBM [id number]) Out-Patient Physical Therapy Visit Information Visit Information Visit Type Treatment Note Visit Start Time 13:45 Visit Stop Time 14:30 Total Visit Minutes 45 Visit Number 4 PT-OP-B Current Condition Start: 02/19/22 16:50 Freq: Status: Active Protocol: Document 03/13/22 08:13 SAK (Rec: 03/13/22 09:02 SAK [id number]) Current Condition History of Current Condition Onset Date 1 year Current Complaints bilateral shoulder pain History of Current Condition Ongoing bilateral shoulder pain and limited ROM since football in college, right greater than left, 1 year ago worsening, uncertain reason 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 Has been rehabing his shoulders on his own; using bands and pool. I's and Y's most difficulty; has been doing kneeling and standing, has not done on foam roller or ball. Has not used kinesiotape, noone to help put it on. Reports work station results in full extension UE's , agrees he probably need to change that. Pain is primarily anterior bilateral shoulders. Prior Treatments and Tests saw doctor in September 2021, no imaging yet, recommended PT first Future Testing and Treatments Planned 1x/wk 12 visits, PT recommend. Treatment Goals Patient/Caregiver Goals Decrease pain with all usual activities, be able to resume typical weight-lifting routine without pain. PT-OP-C Subjective Start: 02/19/22 16:50 Freq: Status: Active Protocol: Document 03/16/22 14:45 NBM (Rec: 03/16/22 17:20 NBM [id number]) OP-PT Subjective Patient Comments Patient Comments Pt reports his R shoulder has been more sore. He has been doing his exercises. PT-OP-J Posture/Palpation/Skin Start: 02/19/22 16:50 Freq: Status: Active Protocol: Document 02/20/22 08:12 SAK (Rec: 02/21/22 17:43 SAK [id number]) Palpation Assessment Location radha shoulder Palpation Location anterior labrum, long head biceps Palpation Findings Tenderness PT-OP-K Range of Motion Start: 02/19/22 16:50 Freq: Status: Active Protocol: Document 02/20/22 08:12 [facility] (Rec: 02/20/22 09:03 [facility] [id number]) Cervical Spine Range of Motion Cervical Spine Active Comments WNL Shoulder Goniometric Range of Motion Shoulder right Testing Position Sitting Flexion 165 Extension 20 Abduction 160 External Rotation at 45 degrees 65 Abduction Internal Rotation Behind Back (text) T8 Comments limited by pain left Testing Position Sitting Flexion 170 Extension 20 Abduction 165 External Rotation at 45 degrees 60 Abduction Internal Rotation Behind Back (text) T8 Comments limited by pain Shoulder ROM Limitations Shoulder ROM Limitations Soft Tissue Tightness,Muscle Weakness,Pain PT-OP-L Special Tests Start: 02/19/22 16:50 Freq: Status: Active Protocol: Document 02/20/22 08:12 [facility] (Rec: 02/21/22 17:43 [facility] [id number]) Special Tests Shoulder Special Tests Speed's Biceps Test Results positive radha Elevation Impingement Test Results negative radha Belly Press Test Results negative radha Drop Arm Rotator Cuff Test Results negative radha PT-OP-M Strength Start: 02/19/22 16:50 Freq: Status: Active Protocol: Document 02/20/22 08:12 [facility] (Rec: 02/21/22 17:43 [facility] [id number]) Shoulder Strength Shoulder Manual Muscle Testing Left Flexion 4 Good Extension 4 Good Abduction (C5) 4 Good External Rotation 4- Good- Internal Rotation 4 Good Horizontal Abduction 4 Good Horizontal Adduction 4 Good Right Flexion 4+ Good+ Extension 4- Good- Abduction (C5) 4 Good External Rotation 4- Good- Internal Rotation 4 Good Horizontal Abduction 4- Good- Horizontal Adduction 4- Good- Elbow/Forearm Strength Elbow and Forearm Manual Muscle Testing radha Flexion (C6) 5 Normal Extension (C7) 5 Normal PT-OP-Q Treatments Start: 02/19/22 16:50 Freq: Status: Active Protocol: Document 03/16/22 14:45 NBM (Rec: 03/16/22 17:20 NBM [id number]) Cardio Equipment Upper Body Ergometer (UBE) RPM 60 Seat Position 11 Height 2.5 Other fwd,bck alternating 1 min intervals Therapeutic Exercises Supine Exercises Scapular retraction Supine Exercise Name elbows 90 deg, gently press elbows into mat Side bilateral Reps/Minutes 5 x 5 SH Comments cues for scapular settting/UT over activation Lower thoracic activation Supine Exercise Name slide palms down sides and press hands gently into mat. Side bilateral Reps/Minutes 5 x 3-5 SH Comments scapular focus pec stretch Equipment Used 1/2 foam roller Comments arms in W position (elbow flexed), unable to tolerate arms straight Sidelying Exercises open book Reps/Minutes 5x radha Comments cues for scapular depression, deep breathing at end range Standing Exercises Rhomboid Doorway stretch Standing Exercise Name added to HEP Side bilateral Equipment Used doorframe Reps/Minutes 2 x 30 Comments good feedback response posture press, ER Equipment Used Tb Reps/Minutes 3 min Comments cues for posterior pelvic tilt for neutral spinal alignment. Manual Therapy Treatment Soft Tissue Mobilization R shoulder Body Location R ruth-scapular, R Biceps tendon Mobilization Type Rolling,Strumming,Sustained Pressure Intensity/Depth Moderate Body Position Sidelying Joint Mobilizations scapulothoracic Reps/Duration 5 min Comments contract relax, infl glide GH Joint right Direction posterior, inf Grade II Body Position Supine Reps/Duration 5 min Comments also R GH jt disctaction Grade II w/ gentle oscillations x 3 min Self-Care/Home Management Treatment Education Patient Education Home Exercise Program,Posture Other Education Discussed shoulder anatomy and explained to pt how pectoral tightness can contribute to anterior capsule pain w/ UE movements. Pt encouraged to stretch pecs accordingly. Rhomboid Doorway stretch added to HEP - no HO given. PT-OP-T Assessment and Plan Start: 02/19/22 16:50 Freq: Status: Active Protocol: Document 03/16/22 14:45 NB (Rec: 03/16/22 17:20 [facility] [id number]) Physical Therapy Assessment Goals lacking HEP Impairment HEP not including posterior chain strengthening, flexibility Impairment weakness rhomboids, lower trapezius, shoulder ER, tight anterior chest Short Term Goal (STG) Instruct patient in balanced, progressive ther ex program for bilateral shoulder ROM and strengthening STG Duration 03/21/22 Artist Suspect Goal (LTG) Patient to demonstrate 5/5 muscle strength throughout his shoulders to allow him to return to all prior activities without pain LTG Duration 05/22/22 ROM and strength impairment Impairment dec end-range flex ROM radha right greater than left with ant pinching pain Impairment tight posterior shoulder capsule Short Term Goal (STG) Improve mobility of posterior shoulder capsule to WNL radha shoulders STG Duration 03/29/22 Correction Goal (LTG) Patient to demonstrate full active shoulder flexion without pain LTG Duration 05/22/22 decreased activity tolerance Impairment unable to do recreational activity Short Term Goal (STG) Patient will be able to resume light recreational activity without an increase in bilateral shoulder pain STG Duration 03/22/22 Artist Suspect Goal (LTG) Patient will be able to resume all prior activities without shoulder pain LTG Duration 05/22/22 pain Impairment pain 3/10 radha shoulders right greater than left Short Term Goal (STG) Decrease pain frequency by 50% STG Duration 03/22/22 Correction Goal (LTG) Decrease pain to 0-1/10 with all usual acataivities. Assessment Summary Assessment Pt presents with increased R shoulder pain. Treatment focus on scapular depression/ downward rotation strengthening, posture and manual therapy. Pt requires consistent cueing for UT overactivation and initial tactile cues for scapular retraction w/ posterior chain strengthening exercises. Pt initially demonstrates poor self-awareness of pectoralis tightness but recognition improves with education and self-monitoring by end of session. Rhomboid doorway stretch added to HEP - no HO given. Physical Therapy Plan Next Visit Focus/Plan Next Note Type Treatment Note Next Visit Plan Continue joint mobiliztion, posterior chain strengthening, postural re-education
--- NOTE | 2022-03-09 14:45 | PT.OTN ---
Current Diagnoses Pain in right shoulder (03/13/22) Physical Therapy Treatment Note PT-OP-A Visit Information Start: 02/19/22 16:50 Freq: Status: Active Protocol: Document 03/09/22 14:45 NBM (Rec: 03/16/22 17:20 NBM [id number]) Out-Patient Physical Therapy Visit Information Visit Information Visit Type Treatment Note Visit Start Time 13:45 Visit Stop Time 14:30 Total Visit Minutes 45 Visit Number 4 PT-OP-B Current Condition Start: 02/19/22 16:50 Freq: Status: Active Protocol: Document 03/13/22 08:13 SAK (Rec: 03/13/22 09:02 SAK [id number]) Current Condition History of Current Condition Onset Date 1 year Current Complaints bilateral shoulder pain History of Current Condition Ongoing bilateral shoulder pain and limited ROM since football in college, right greater than left, 1 year ago worsening, uncertain reason 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 Has been rehabing his shoulders on his own; using bands and pool. I's and Y's most difficulty; has been doing kneeling and standing, has not done on foam roller or ball. Has not used kinesiotape, noone to help put it on. Reports work station results in full extension UE's , agrees he probably need to change that. Pain is primarily anterior bilateral shoulders. Prior Treatments and Tests saw doctor in September 2021, no imaging yet, recommended PT first Future Testing and Treatments Planned 1x/wk 12 visits, PT recommend. Treatment Goals Patient/Caregiver Goals Decrease pain with all usual activities, be able to resume typical weight-lifting routine without pain. PT-OP-C Subjective Start: 02/19/22 16:50 Freq: Status: Active Protocol: Document 03/16/22 14:45 NBM (Rec: 03/16/22 17:20 NBM [id number]) OP-PT Subjective Patient Comments Patient Comments Pt reports his R shoulder has been more sore. He has been doing his exercises. PT-OP-J Posture/Palpation/Skin Start: 02/19/22 16:50 Freq: Status: Active Protocol: Document 02/20/22 08:12 SAK (Rec: 02/21/22 17:43 SAK [id number]) Palpation Assessment Location radha shoulder Palpation Location anterior labrum, long head biceps Palpation Findings Tenderness PT-OP-K Range of Motion Start: 02/19/22 16:50 Freq: Status: Active Protocol: Document 02/20/22 08:12 [facility] (Rec: 02/20/22 09:03 [facility] [id number]) Cervical Spine Range of Motion Cervical Spine Active Comments WNL Shoulder Goniometric Range of Motion Shoulder right Testing Position Sitting Flexion 165 Extension 20 Abduction 160 External Rotation at 45 degrees 65 Abduction Internal Rotation Behind Back (text) T8 Comments limited by pain left Testing Position Sitting Flexion 170 Extension 20 Abduction 165 External Rotation at 45 degrees 60 Abduction Internal Rotation Behind Back (text) T8 Comments limited by pain Shoulder ROM Limitations Shoulder ROM Limitations Soft Tissue Tightness,Muscle Weakness,Pain PT-OP-L Special Tests Start: 02/19/22 16:50 Freq: Status: Active Protocol: Document 02/20/22 08:12 [facility] (Rec: 02/21/22 17:43 [facility] [id number]) Special Tests Shoulder Special Tests Speed's Biceps Test Results positive radha Elevation Impingement Test Results negative radha Belly Press Test Results negative radha Drop Arm Rotator Cuff Test Results negative radha PT-OP-M Strength Start: 02/19/22 16:50 Freq: Status: Active Protocol: Document 02/20/22 08:12 [facility] (Rec: 02/21/22 17:43 [facility] [id number]) Shoulder Strength Shoulder Manual Muscle Testing Left Flexion 4 Good Extension 4 Good Abduction (C5) 4 Good External Rotation 4- Good- Internal Rotation 4 Good Horizontal Abduction 4 Good Horizontal Adduction 4 Good Right Flexion 4+ Good+ Extension 4- Good- Abduction (C5) 4 Good External Rotation 4- Good- Internal Rotation 4 Good Horizontal Abduction 4- Good- Horizontal Adduction 4- Good- Elbow/Forearm Strength Elbow and Forearm Manual Muscle Testing radha Flexion (C6) 5 Normal Extension (C7) 5 Normal PT-OP-Q Treatments Start: 02/19/22 16:50 Freq: Status: Active Protocol: Document 03/16/22 14:45 NBM (Rec: 03/16/22 17:20 NBM [id number]) Cardio Equipment Upper Body Ergometer (UBE) RPM 60 Seat Position 11 Height 2.5 Other fwd,bck alternating 1 min intervals Therapeutic Exercises Supine Exercises Scapular retraction Supine Exercise Name elbows 90 deg, gently press elbows into mat Side bilateral Reps/Minutes 5 x 5 SH Comments cues for scapular settting/UT over activation Lower thoracic activation Supine Exercise Name slide palms down sides and press hands gently into mat. Side bilateral Reps/Minutes 5 x 3-5 SH Comments scapular focus pec stretch Equipment Used 1/2 foam roller Comments arms in W position (elbow flexed), unable to tolerate arms straight Sidelying Exercises open book Reps/Minutes 5x radha Comments cues for scapular depression, deep breathing at end range Standing Exercises Rhomboid Doorway stretch Standing Exercise Name added to HEP Side bilateral Equipment Used doorframe Reps/Minutes 2 x 30 Comments good feedback response posture press, ER Equipment Used Tb Reps/Minutes 3 min Comments cues for posterior pelvic tilt for neutral spinal alignment. Manual Therapy Treatment Soft Tissue Mobilization R shoulder Body Location R ruth-scapular, R Biceps tendon Mobilization Type Rolling,Strumming,Sustained Pressure Intensity/Depth Moderate Body Position Sidelying Joint Mobilizations scapulothoracic Reps/Duration 5 min Comments contract relax, infl glide GH Joint right Direction posterior, inf Grade II Body Position Supine Reps/Duration 5 min Comments also R GH jt disctaction Grade II w/ gentle oscillations x 3 min Self-Care/Home Management Treatment Education Patient Education Home Exercise Program,Posture Other Education Discussed shoulder anatomy and explained to pt how pectoral tightness can contribute to anterior capsule pain w/ UE movements. Pt encouraged to stretch pecs accordingly. Rhomboid Doorway stretch added to HEP - no HO given. PT-OP-T Assessment and Plan Start: 02/19/22 16:50 Freq: Status: Active Protocol: Document 03/16/22 14:45 NB (Rec: 03/16/22 17:20 [facility] [id number]) Physical Therapy Assessment Goals lacking HEP Impairment HEP not including posterior chain strengthening, flexibility Impairment weakness rhomboids, lower trapezius, shoulder ER, tight anterior chest Short Term Goal (STG) Instruct patient in balanced, progressive ther ex program for bilateral shoulder ROM and strengthening STG Duration 03/21/22 Gasateria Attendant Goal (LTG) Patient to demonstrate 5/5 muscle strength throughout his shoulders to allow him to return to all prior activities without pain LTG Duration 05/22/22 ROM and strength impairment Impairment dec end-range flex ROM radha right greater than left with ant pinching pain Impairment tight posterior shoulder capsule Short Term Goal (STG) Improve mobility of posterior shoulder capsule to WNL radha shoulders STG Duration 03/29/22 Halfway Goal (LTG) Patient to demonstrate full active shoulder flexion without pain LTG Duration 05/22/22 decreased activity tolerance Impairment unable to do recreational activity Short Term Goal (STG) Patient will be able to resume light recreational activity without an increase in bilateral shoulder pain STG Duration 03/22/22 Gasateria Attendant Goal (LTG) Patient will be able to resume all prior activities without shoulder pain LTG Duration 05/22/22 pain Impairment pain 3/10 radha shoulders right greater than left Short Term Goal (STG) Decrease pain frequency by 50% STG Duration 03/22/22 Halfway Goal (LTG) Decrease pain to 0-1/10 with all usual acataivities. Assessment Summary Assessment Pt presents with increased R shoulder pain. Treatment focus on scapular depression/ downward rotation strengthening, posture and manual therapy. Pt requires consistent cueing for UT overactivation and initial tactile cues for scapular retraction w/ posterior chain strengthening exercises. Pt initially demonstrates poor self-awareness of pectoralis tightness but recognition improves with education and self-monitoring by end of session. Rhomboid doorway stretch added to HEP - no HO given. Physical Therapy Plan Next Visit Focus/Plan Next Note Type Treatment Note Next Visit Plan Continue joint mobiliztion, posterior chain strengthening, postural re-education
--- NOTE | 2022-03-13 17:42 | PT.OTN ---
Current Diagnoses Pain in right shoulder (03/13/22) Physical Therapy Treatment Note PT-OP-A Visit Information Start: 02/19/22 16:50 Freq: Status: Active Protocol: Document 03/13/22 08:13 [facility] (Rec: 03/13/22 09:02 [facility] [id number]) Out-Patient Physical Therapy Visit Information Visit Information Visit Type Treatment Note Visit Note Recently been more aggravated, not sure why, maybe sleeping on it more. Reports Saturday, Saturday, Saturday more painful especially ER. 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 Has been rehabing his shoulders on his own; using bands and pool. I's and Y's most difficulty; has been doing kneeling and standing, has not done on foam roller or ball. Has not used kinesiotape, noone to help put it on. Reports work station results in full extension UE's , agrees he probably need to change that. Pain is primarily anterior bilateral shoulders. Prior Treatments and Tests saw doctor in September 2021, no imaging yet, recommended PT first Future Testing and Treatments Planned 1x/wk 12 visits, PT recommend. Treatment Goals Patient/Caregiver Goals Decrease pain with all usual activities, be able to resume typical weight-lifting routine without pain. PT-OP-C Subjective Start: 02/19/22 16:50 Freq: Status: Active Protocol: Document 02/20/22 08:12 [facility] (Rec: 02/20/22 09:03 [facility] [id number]) Patient Questionnaires Quick Dash- Upper Extremity Quick Dash UE Score 27 OP-PT Pain Assessment Pain Assessment Grid Paper Pain Assessment Grid Completed Yes Location radha shoulders Intensity 3 Description Aching,Burning,Pressure,Tender ,Tightness Frequency Frequent Pain Aggravating Factors ADL's,Activity,Exercise Pain Alleviating Factors Cold,Heat,Medication, Inactivity,Rest Home Pain Medication Use Pain Medications Used No Comments Pain Comments ice, heat, intermittant PT-OP-J Posture/Palpation/Skin Start: 02/19/22 16:50 Freq: Status: Active Protocol: Document 02/20/22 08:12 [facility] (Rec: 02/21/22 17:43 [facility] [id number]) Palpation Assessment Location radha shoulder Palpation Location anterior labrum, long head biceps Palpation Findings Tenderness PT-OP-K Range of Motion Start: 02/19/22 16:50 Freq: Status: Active Protocol: Document 02/20/22 08:12 [facility] (Rec: 02/20/22 09:03 [facility] [id number]) Cervical Spine Range of Motion Cervical Spine Active Comments WNL Shoulder Goniometric Range of Motion Shoulder right Testing Position Sitting Flexion 165 Extension 20 Abduction 160 External Rotation at 45 degrees 65 Abduction Internal Rotation Behind Back (text) T8 Comments limited by pain left Testing Position Sitting Flexion 170 Extension 20 Abduction 165 External Rotation at 45 degrees 60 Abduction Internal Rotation Behind Back (text) T8 Comments limited by pain Shoulder ROM Limitations Shoulder ROM Limitations Soft Tissue Tightness,Muscle Weakness,Pain PT-OP-L Special Tests Start: 02/19/22 16:50 Freq: Status: Active Protocol: Document 02/20/22 08:12 [facility] (Rec: 02/21/22 17:43 [facility] [id number]) Special Tests Shoulder Special Tests Speed's Biceps Test Results positive radha Elevation Impingement Test Results negative radha Belly Press Test Results negative radha Drop Arm Rotator Cuff Test Results negative radha PT-OP-M Strength Start: 02/19/22 16:50 Freq: Status: Active Protocol: Document 02/20/22 08:12 [facility] (Rec: 02/21/22 17:43 [facility] [id number]) Shoulder Strength Shoulder Manual Muscle Testing Left Flexion 4 Good Extension 4 Good Abduction (C5) 4 Good External Rotation 4- Good- Internal Rotation 4 Good Horizontal Abduction 4 Good Horizontal Adduction 4 Good Right Flexion 4+ Good+ Extension 4- Good- Abduction (C5) 4 Good External Rotation 4- Good- Internal Rotation 4 Good Horizontal Abduction 4- Good- Horizontal Adduction 4- Good- Elbow/Forearm Strength Elbow and Forearm Manual Muscle Testing radha Flexion (C6) 5 Normal Extension (C7) 5 Normal PT-OP-Q Treatments Start: 02/19/22 16:50 Freq: Status: Active Protocol: Document 03/13/22 08:13 [facility] (Rec: 03/13/22 09:02 [facility] [id number]) Cardio Equipment Upper Body Ergometer (UBE) RPM 60 Seat Position 11 Height 2.5 Other fwd,bck alternating 1 min intervals Therapeutic Exercises Supine Exercises Lower trunk rotation Supine Exercise Name arms in T position, posterior pressure manually on shoulder pec stretch Reps/Minutes manual ER Side right Reps/Minutes 30 x 2 Comments manual stretch after joint mob Prone Exercises I's Reps/Minutes 10x2 Comments verbal and tactile cues W Reps/Minutes 5x Comments cues for scapular post/inf glide, ER to chris; difficulty with ER T's, Y's Reps/Minutes 10x2 Comments verbal and tactile cues for scapular activation; more scapula, less arm Standing Exercises pec stretch Standing Exercise Name unil Comments cues capture anterior shoulder against wall for retraction posture press, ER Reps/Minutes 3 min Comments cues for posterior pelvic tilt for neutral spinal alignment. Manual Therapy Treatment Joint Mobilizations thoracic PA's Joint T4-T10 Direction PA Grade III Body Position Prone Reps/Duration approx 10 each level Comments use of wedge, good feedback response GH Joint right Direction posterior, inf Grade III Body Position Supine Reps/Duration 8 min Taping right shoulder Treatment Focus scapular retraction facilitation Type of Tape kinesiotape Skin Inspection intact Comments 50-75% stretch I strip T10 across inf angle of scapula to anterior shoulder PT-OP-T Assessment and Plan Start: 02/19/22 16:50 Freq: Status: Active Protocol: Document 03/13/22 08:13 [facility] (Rec: 03/13/22 09:02 [facility] [id number]) Physical Therapy Assessment Goals lacking HEP Impairment HEP not including posterior chain strengthening, flexibility Impairment weakness rhomboids, lower trapezius, shoulder ER, tight anterior chest Short Term Goal (STG) Instruct patient in balanced, progressive ther ex program for bilateral shoulder ROM and strengthening STG Duration 03/21/22 Group Home Goal (LTG) Patient to demonstrate 5/5 muscle strength throughout his shoulders to allow him to return to all prior activities without pain LTG Duration 05/22/22 ROM and strength impairment Impairment dec end-range flex ROM radha right greater than left with ant pinching pain Impairment tight posterior shoulder capsule Short Term Goal (STG) Improve mobility of posterior shoulder capsule to WNL radha shoulders STG Duration 03/29/22 Group Home Goal (LTG) Patient to demonstrate full active shoulder flexion without pain LTG Duration 05/22/22 decreased activity tolerance Impairment unable to do recreational activity Short Term Goal (STG) Patient will be able to resume light recreational activity without an increase in bilateral shoulder pain STG Duration 03/22/22 Group Home Goal (LTG) Patient will be able to resume all prior activities without shoulder pain LTG Duration 05/22/22 pain Impairment pain 3/10 radha shoulders right greater than left Short Term Goal (STG) Decrease pain frequency by 50% STG Duration 03/22/22 Group Home Goal (LTG) Decrease pain to 0-1/10 with all usual acataivities. Assessment Summary Assessment Appears patient may be extending through shoulder but not retracting scapula both with flexibility and strengthening activities. After moderate manual facilitation with prone ex patient demonstrating improved scapular awareness and activation. Physical Therapy Plan Frequency and Duration Frequency of Treatment 1x/Week Duration of Treatment 12 weeks Plan of Care Start Date 02/20/22 Plan of Care End Date 05/22/22 Therapeutic Interventions Therapeutic Interventions Home Exercise Program,Manual Therapy,Neuromuscular Re- education,Patient/Caregiver Education,Self-Care/Home Management,Soft Tissue Mobilization,Taping, Therapeutic Activities, Therapeutic Exercises Modalities Cold Pack/Ice Massage,Electric Stimulation,Hot Packs, Infrared Therapy,Iontophoresis ,Ultrasound Next Visit Focus/Plan Next Note Type Treatment Note Next Visit Plan Continue PT for scapular dyskinesia, anterior stretching, posterior chain strengthening, emphasis on ER as tolerated. Continue KT tape if well tolerated and helpful.
--- NOTE | 2022-03-16 15:30 | PT-OP ANOTE ---
Called pt at at 3:30pm and left voicemail regarding missed 3:15pm appointment today; advised can call [phone] to reschedule and I currently have availability 03/19 at 2:30pm. Advised next scheduled appointment is 03/29/22 at 9:00am.
--- NOTE | 2022-03-29 09:52 | PT.OTN ---
Current Diagnoses Pain in right shoulder (03/29/22) Physical Therapy Treatment Note PT-OP-A Visit Information Start: 02/19/22 16:50 Freq: Status: Active Protocol: Document 03/29/22 09:05 [facility] (Rec: 03/29/22 09:53 [facility] [id number]) Out-Patient Physical Therapy Visit Information Visit Information Visit Type Treatment Note Visit Start Time 09:05 Visit Stop Time 09:52 Total Visit Minutes 47 Visit Number 6 Number of FOOD SCIENTIST Visits 1 Evaluation Information Evaluation Date 02/20/22 PT-OP-B Current Condition Start: 02/19/22 16:50 Freq: Status: Active Protocol: Document 03/13/22 08:13 [facility] (Rec: 03/13/22 09:02 [facility] [id number]) Current Condition History of Current Condition Onset Date 1 year Current Complaints bilateral shoulder pain History of Current Condition Ongoing bilateral shoulder pain and limited ROM since football in college, right greater than left, 1 year ago worsening, uncertain reason 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 Has been rehabing his shoulders on his own; using bands and pool. I's and Y's most difficulty; has been doing kneeling and standing, has not done on foam roller or ball. Has not used kinesiotape, noone to help put it on. Reports work station results in full extension UE's , agrees he probably need to change that. Pain is primarily anterior bilateral shoulders. Prior Treatments and Tests saw doctor in September 2021, no imaging yet, recommended PT first Future Testing and Treatments Planned 1x/wk 12 visits, PT recommend. Treatment Goals Patient/Caregiver Goals Decrease pain with all usual activities, be able to resume typical weight-lifting routine without pain. PT-OP-C Subjective Start: 02/19/22 16:50 Freq: Status: Active Protocol: Document 03/29/22 09:05 [facility] (Rec: 03/29/22 09:53 [facility] [id number]) OP-PT Subjective Patient Comments Patient Comments Pt reported feeling more pinching in anterior R shld since reeducating positioning HEP, trying to be body aware allow posterior glide/ scap retraction. PT-OP-J Posture/Palpation/Skin Start: 02/19/22 16:50 Freq: Status: Active Protocol: Document 02/20/22 08:12 [facility] (Rec: 02/21/22 17:43 [facility] [id number]) Palpation Assessment Location radha shoulder Palpation Location anterior labrum, long head biceps Palpation Findings Tenderness PT-OP-K Range of Motion Start: 02/19/22 16:50 Freq: Status: Active Protocol: Document 02/20/22 08:12 [facility] (Rec: 02/20/22 09:03 [facility] [id number]) Cervical Spine Range of Motion Cervical Spine Active Comments WNL Shoulder Goniometric Range of Motion Shoulder right Testing Position Sitting Flexion 165 Extension 20 Abduction 160 External Rotation at 45 degrees 65 Abduction Internal Rotation Behind Back (text) T8 Comments limited by pain left Testing Position Sitting Flexion 170 Extension 20 Abduction 165 External Rotation at 45 degrees 60 Abduction Internal Rotation Behind Back (text) T8 Comments limited by pain Shoulder ROM Limitations Shoulder ROM Limitations Soft Tissue Tightness,Muscle Weakness,Pain PT-OP-L Special Tests Start: 02/19/22 16:50 Freq: Status: Active Protocol: Document 02/20/22 08:12 [facility] (Rec: 02/21/22 17:43 [facility] [id number]) Special Tests Shoulder Special Tests Speed's Biceps Test Results positive radha Elevation Impingement Test Results negative radha Belly Press Test Results negative radha Drop Arm Rotator Cuff Test Results negative radha PT-OP-M Strength Start: 02/19/22 16:50 Freq: Status: Active Protocol: Document 02/20/22 08:12 [facility] (Rec: 02/21/22 17:43 [facility] [id number]) Shoulder Strength Shoulder Manual Muscle Testing Left Flexion 4 Good Extension 4 Good Abduction (C5) 4 Good External Rotation 4- Good- Internal Rotation 4 Good Horizontal Abduction 4 Good Horizontal Adduction 4 Good Right Flexion 4+ Good+ Extension 4- Good- Abduction (C5) 4 Good External Rotation 4- Good- Internal Rotation 4 Good Horizontal Abduction 4- Good- Horizontal Adduction 4- Good- Elbow/Forearm Strength Elbow and Forearm Manual Muscle Testing radha Flexion (C6) 5 Normal Extension (C7) 5 Normal PT-OP-Q Treatments Start: 02/19/22 16:50 Freq: Status: Active Protocol: Document 03/29/22 09:05 [facility] (Rec: 03/29/22 09:53 [facility] [id number]) Therapeutic Exercises Supine Exercises TS ext MWM Supine Exercise Name TS ext and roll Equipment Used over foam roller Comments good feedback response does at home pec stretch Equipment Used small foam roller Reps/Minutes 30 x3 Comments good response Y's, T's Resistance L3 TB uses more than 4 at home . Equipment Used over foam roller horizontally Reps/Minutes 10x2 Comments good feedback rhomboid support strengthening Prone Exercises I's Prone Exercise Name at side Resistance #2 DB Reps/Minutes 10x2 Comments verbal and tactile cues W Equipment Used #2 DB Reps/Minutes 5x Comments cues for scapular post/inf glide, ER to chris; difficulty with ER T's, Y's Prone Exercise Name Ts (ER improved rhomboid recruit but no ant R shld pain ), Ys Side right Equipment Used #2 DB Reps/Minutes 10x2 Comments verbal and tactile cues for Rhomboid activation; more scapula, less arm Standing Exercises posture press, ER Standing Exercise Name Wall posture w/ER elbow at approx 50 deg flexion TB Equipment Used good muscle tiring and not pain Reps/Minutes 3 min Comments tactcues for LS neutral TA, R humerus inf and humeral head posterior glide Manual Therapy Treatment Joint Mobilizations scapulothoracic Reps/Duration 5 min Comments initial Manual STMs with scap thoracic then contract relax, infl glide thoracic PA's Joint T4-T10 Direction PA Grade II Body Position Prone Reps/Duration approx 10 each level Comments use of wedge, good feedback response Taping right shoulder Treatment Focus scapular retraction facilitation Type of Tape kinesiotape Skin Inspection intact Comments 50-75% stretch I strip T10 across inf angle of scapula to anterior shoulder, V strip to superior angle and other interscap PT-OP-T Assessment and Plan Start: 02/19/22 16:50 Freq: Status: Active Protocol: Document 03/29/22 09:05 [facility] (Rec: 03/29/22 09:53 [facility] [id number]) Physical Therapy Assessment Goals lacking HEP Impairment HEP not including posterior chain strengthening, flexibility Impairment weakness rhomboids, lower trapezius, shoulder ER, tight anterior chest Short Term Goal (STG) Instruct patient in balanced, progressive ther ex program for bilateral shoulder ROM and strengthening STG Duration 03/21/22 [facility] Goal (LTG) Patient to demonstrate 5/5 muscle strength throughout his shoulders to allow him to return to all prior activities without pain LTG Duration 05/22/22 ROM and strength impairment Impairment dec end-range flex ROM radha right greater than left with ant pinching pain Impairment tight posterior shoulder capsule Short Term Goal (STG) Improve mobility of posterior shoulder capsule to WNL radha shoulders STG Duration 03/29/22 Coord[facility] Of [facility] Services Goal (LTG) Patient to demonstrate full active shoulder flexion without pain LTG Duration 05/22/22 decreased activity tolerance Impairment unable to do recreational activity Short Term Goal (STG) Patient will be able to resume light recreational activity without an increase in bilateral shoulder pain STG Duration 03/22/22 [facility] Goal (LTG) Patient will be able to resume all prior activities without shoulder pain LTG Duration 05/22/22 pain Impairment pain 3/10 radha shoulders right greater than left Short Term Goal (STG) Decrease pain frequency by 50% STG Duration 03/22/22 [facility] Goal (LTG) Decrease pain to 0-1/10 with all usual acataivities. Assessment Summary Assessment Pt improved decrease anterior R shld pain today with cues posterior humeral head and inferior glide awareness during HEP to all improved stability, tires quickly. Pt welcoming to reapply K taping end tx for self feedback posturing support. Physical Therapy Plan Frequency and Duration Frequency of Treatment 1x/Week Duration of Treatment 12 weeks Plan of Care Start Date 02/20/22 Plan of Care End Date 05/22/22 Therapeutic Interventions Therapeutic Interventions Home Exercise Program,Manual Therapy,Neuromuscular Re- education,Patient/Caregiver Education,Self-Care/Home Management,Soft Tissue Mobilization,Taping, Therapeutic Activities, Therapeutic Exercises Modalities Cold Pack/Ice Massage,Electric Stimulation,Hot Packs, Infrared Therapy,Iontophoresis ,Ultrasound Next Visit Focus/Plan Next Note Type Treatment Note Next Visit Plan Recheck prone and back to wall ER resistance. POC: Continue PT for scapular dyskinesia, anterior stretching, posterior chain strengthening, emphasis on ER as tolerated. Continue KT tape if well tolerated and helpful.
--- NOTE | 2022-04-13 11:15 | PT-OP ANOTE ---
Pt cancelled today's appt less than 24 hrs due to unableto leave work and get there in time. 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
--- NOTE | 2022-06-11 14:52 | PT.OPDS ---
Current Diagnoses Pain in right shoulder (03/29/22) Visit Care Team Role Provider Type RAJ Quintanilla MD Attending Provider Non-Staff Family Provider Referring Provider Specialty: Medical Address: [facility], [address] [place] [address], [id number] Email: Visit Number Visit Number 6 Discharge Summary PT-OP-B Current Condition Start: 02/19/22 16:50 Freq: Status: Active Protocol: Document 03/13/22 08:13 [facility] (Rec: 03/13/22 09:02 [facility] [id number]) Current Condition History of Current Condition Onset Date 1 year Current Complaints bilateral shoulder pain History of Current Condition Ongoing bilateral shoulder pain and limited ROM since football in college, right greater than left, 1 year ago worsening, uncertain reason 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 Has been rehabing his shoulders on his own; using bands and pool. I's and Y's most difficulty; has been doing kneeling and standing, has not done on foam roller or ball. Has not used kinesiotape, noone to help put it on. Reports work station results in full extension UE's , agrees he probably need to change that. Pain is primarily anterior bilateral shoulders. Prior Treatments and Tests saw doctor in September 2021, no imaging yet, recommended PT first Future Testing and Treatments Planned 1x/wk 12 visits, PT recommend. Treatment Goals Patient/Caregiver Goals Decrease pain with all usual activities, be able to resume typical weight-lifting routine without pain. PT-OP-C Subjective Start: 02/19/22 16:50 Freq: Status: Active Protocol: Document 03/29/22 09:05 [facility] (Rec: 03/29/22 09:53 [facility] [id number]) OP-PT Subjective Patient Comments Patient Comments Pt reported feeling more pinching in anterior R shld since reeducating positioning HEP, trying to be body aware allow posterior glide/ scap retraction. PT-OP-J Posture/Palpation/Skin Start: 02/19/22 16:50 Freq: Status: Active Protocol: Document 02/20/22 08:12 [facility] (Rec: 02/21/22 17:43 [facility] [id number]) Palpation Assessment Location radha shoulder Palpation Location anterior labrum, long head biceps Palpation Findings Tenderness PT-OP-K Range of Motion Start: 02/19/22 16:50 Freq: Status: Active Protocol: Document 02/20/22 08:12 [facility] (Rec: 02/20/22 09:03 [facility] [id number]) Cervical Spine Range of Motion Cervical Spine Active Comments WNL Shoulder Goniometric Range of Motion Shoulder right Testing Position Sitting Flexion 165 Extension 20 Abduction 160 External Rotation at 45 degrees 65 Abduction Internal Rotation Behind Back (text) T8 Comments limited by pain left Testing Position Sitting Flexion 170 Extension 20 Abduction 165 External Rotation at 45 degrees 60 Abduction Internal Rotation Behind Back (text) T8 Comments limited by pain Shoulder ROM Limitations Shoulder ROM Limitations Soft Tissue Tightness,Muscle Weakness,Pain PT-OP-L Special Tests Start: 02/19/22 16:50 Freq: Status: Active Protocol: Document 02/20/22 08:12 [facility] (Rec: 02/21/22 17:43 [facility] [id number]) Special Tests Shoulder Special Tests Speed's Biceps Test Results positive radha Elevation Impingement Test Results negative radha Belly Press Test Results negative radha Drop Arm Rotator Cuff Test Results negative radha PT-OP-M Strength Start: 02/19/22 16:50 Freq: Status: Active Protocol: Document 02/20/22 08:12 [facility] (Rec: 02/21/22 17:43 [facility] [id number]) Shoulder Strength Shoulder Manual Muscle Testing Left Flexion 4 Good Extension 4 Good Abduction (C5) 4 Good External Rotation 4- Good- Internal Rotation 4 Good Horizontal Abduction 4 Good Horizontal Adduction 4 Good Right Flexion 4+ Good+ Extension 4- Good- Abduction (C5) 4 Good External Rotation 4- Good- Internal Rotation 4 Good Horizontal Abduction 4- Good- Horizontal Adduction 4- Good- Elbow/Forearm Strength Elbow and Forearm Manual Muscle Testing radha Flexion (C6) 5 Normal Extension (C7) 5 Normal PT-OP-T Assessment and Plan Start: 02/19/22 16:50 Freq: Status: Active Protocol: Document 06/11/22 14:51 [facility] (Rec: 06/11/22 14:52 [facility] [id number]) Physical Therapy Plan Discharge Physical Therapy Discharge Reasons No Longer Attending PT
== END 2022-06-12 09:41 | disposition home or self-care (01) ==
LOC: PHYS 09:00
DX: M25.511 Pain in right shoulder (principal)
CPT/HCPCS: 97110; 97140; 97161; 97162; 97535